=== PATIENT | male | born 1970 | race Two or more races ===

== ENCOUNTER 2018-11-05 09:24 | Emergency (ER) | payer SELFPAY ==
[~2018-11-05] VITALS: Ht 180.3 cm; Wt 93.4 kg
--- NOTE | 2018-11-05 09:25 | NUR ---
PT [id number] FRM RENATO, C/O CHEST PAIN, SOB X TODAY, ANXIOUS. PT GIVEN ASPIRIN, NITRO X 1 GIVEN ASSOCIATE ATTORNEY. ADMITS TO METH USE, PT IS AAOX4, NOT IN RESPIRATORY DISTRESS, HOOKED TO MONITOR, KEPT RESTED AND COMFORTABLE. WILL CONTINUE TO MONITOR.
--- NOTE | 2018-11-05 09:30 | NUR ---
EKG DONE BY POLICE STENOGRAPHER.
--- NOTE | 2018-11-05 09:35 | NUR ---
DR. BALDWIN AT BEDSIDE FOR EVAL.
[2018-11-05] MEDS ORDERED: OLANZAPINE 10 MG VIAL IM ONE (09:43)
[2018-11-05] MEDS ORDERED: LORAZEPAM 1 MG TABLET ONE (09:44)
[2018-11-05 09:45] LABS: BASOPHILS # (AUTO) 0.1 /CMM (0.0-0.2); BASOPHILS % (AUTO) 0.7 % (0.0-2.0); EOSINOPHILS % (AUTO) 2.5 % (0.0-6.0); HEMATOCRIT 41 % (39-51); HEMOGLOBIN 14.3 g/dL (13.5-17.5); LYMPHOCYTES # (AUTO) 2.1 /CMM (0.8-4.8); LYMPHOCYTES % (AUTO) 18.4 % (20.0-44.0); MEAN CORPUSCULAR HGB CONC 35 g/dl (31.0-36.0); MEAN CORPUSCULAR VOLUME 97 fL (80-96); MONOCYTES % (AUTO) 8.6 % (2.0-12.0); NEUTROPHILS # (AUTO) 7.8 /CMM (1.8-8.9); NEUTROPHILS % (AUTO) 69.8 % (43.0-81.0); PLATELET COUNT (AUTO) 283 /CMM (150-450); RED BLOOD CELL COUNT(AUTO) 4.27 MIL/uL (4.5-6.0); WHITE BLOOD COUNT (AUTO) 11.2 K/uL (4.3-11.0)
--- NOTE | 2018-11-05 09:45 | NUR ---
BLOOD DRAWNED AND SENT TO LAB.
[2018-11-05] MEDS: LORAZEPAM 1 MG TABLET PO ONE (09:52)
[2018-11-05] MEDS: OLANZAPINE 10 MG VIAL IM ONE (09:52)
[2018-11-05 09:53] LABS: CALCIUM, SERUM 8.8 mg/dL (8.5-10.1); POTASSIUM 3.7 mmol/L (3.5-5.1)
--- NOTE | 2018-11-05 09:53 | NUR ---
URINAL GIVEN BUT UNABLE TO PROVIDE URINE SPECIMEN.
[2018-11-05 09:59] LABS: ALBUMIN 3.5 g/dL (3.4-5.0); BILIRUBIN,DIRECT 0.1 mg/dL (0.0-0.2); BILIRUBIN,TOTAL 0.7 mg/dL (0.2-1.0); SALICYLATE 2.2 mg/dL (2.8-20.0); TOTAL PROTEIN, SERUM 7.2 g/dL (6.4-8.2)
[2018-11-05 18:45] VITALS: BP 122/78
--- NOTE | 2018-11-05 18:45 | NUR ---
IV removed. Catheter intact and site benign. Pressure and 4x4 applied to site. No bleeding noted. Patient discharged to home in stable condition. Written and verbal after care instructions given. Patient verbalizes understanding of instruction.
== END 2018-11-05 18:47 | disposition home or self-care (01) ==
LOC: ER 09:24
DX: F15.10 Other stimulant abuse, uncomplicated (principal); F19.10 Other psychoactive substance abuse, uncomplicated
CPT/HCPCS: 36415; 80048; 80076; 80307; 80329; 85025; 93005; 96372; 99284; G0480; J3490